=== PATIENT | male | born 1985 | race Caucasian/White ===

== ENCOUNTER 2018-04-22 11:11 | Inpatient (IN) | payer MEDICAID, OTHER | END 2018-04-30 18:22 | disposition home or self-care (01) | LOC: ER 11:11 → PCU 3S 04-25 17:01 → ED HOLD 11:55 → CICU 2S 13:33 | PROC: 5A1945Z Respiratory Ventilation, 24-96 Consecutive Hours (ICD-10-PCS; principal; ~2018-04-22) | PROC: 0BH17EZ Insertion of Endotracheal Airway into Trachea, Via Natural or Artificial Opening (ICD-10-PCS; ~2018-04-22) | DX: J96.00 Acute respiratory failure, unspecified whether with hypoxia or hypercapnia (principal); I46.9 Cardiac arrest, cause unspecified; J69.0 Pneumonitis due to inhalation of food and vomit; J81.0 Acute pulmonary edema; I47.2 Ventricular tachycardia; T40.1X1A Poisoning by heroin, accidental (unintentional), initial encounter ==

== ENCOUNTER 2021-07-25 11:09 | Emergency (ER) | payer MEDICAID ==
[~2021-07-25] VITALS: Ht 175.3 cm; Wt 92.8 kg
[~2021-07-25 11:09] MED LIST: CLON0.1T2 PO; UNABLE TO OBTAIN
[2021-07-25 11:12] VITALS: BP 139/98
[2021-07-25] MEDS ORDERED: SULF1TAB49 PO (11:41)
== END 2021-07-25 12:03 | disposition home or self-care (01) ==
LOC: ER 11:09
DX: L03.116 Cellulitis of left lower limb (principal); F14.90 Cocaine use, unspecified, uncomplicated; Z72.89 Other problems related to lifestyle; Z59.00 Homelessness unspecified; Z79.899 Other long term (current) drug therapy
CPT/HCPCS: 99284

== ENCOUNTER 2021-11-16 00:28 | Emergency (ER) | payer MEDICAID ==
[~2021-11-16] VITALS: Ht 175.3 cm; Wt 91.5 kg
--- NOTE | 2021-11-16 01:00 | NUR ---
TOOK ADVIL @0000 3 CM LAC TO LEFT FACE UPPER LIP AREA , THROUGH AND THROUGH, ECCHYMOSIS AROUND SITE EDGES APPROXIMATE WELL NON DISTRESSFUL
[2021-11-16] MEDS ORDERED: amox tr/potassium clavulanate 500mg/125mg TAB PO ONE (01:20)
[2021-11-16] MEDS ORDERED: ondansetron 4mg rapidly disintigrating tab PO ONE (01:20)
[2021-11-16] MEDS ORDERED: AMOX-115 PO (01:44)
[2021-11-16 02:03] VITALS: BP 122/86
== END 2021-11-16 02:04 | disposition home or self-care (01) ==
LOC: ER 00:28
DX: S01.511A Laceration without foreign body of lip, initial encounter (principal); F11.90 Opioid use, unspecified, uncomplicated; Z72.89 Other problems related to lifestyle; Z59.00 Homelessness unspecified; Z79.2 Long term (current) use of antibiotics; X58.XXXA Exposure to other specified factors, initial encounter; Y93.64 Activity, baseball; Y92.89 Other specified places as the place of occurrence of the external cause; Y99.8 Other external cause status
CPT/HCPCS: 12011; 99283

== ENCOUNTER 2021-11-23 12:30 | Emergency (ER) | payer MEDICAID ==
[~2021-11-23] VITALS: Ht 175.3 cm; Wt 90.9 kg
[~2021-11-23 12:30] MED LIST changes: +AMOX-115 PO; -CLON0.1T2 PO; -UNABLE TO OBTAIN
[2021-11-23 12:36] VITALS: BP 127/95
== END 2021-11-23 14:21 | disposition home or self-care (01) ==
LOC: ER 12:30
DX: S01.511D Laceration without foreign body of lip, subsequent encounter (principal); Z48.00 Encounter for change or removal of nonsurgical wound dressing; X58.XXXD Exposure to other specified factors, subsequent encounter
CPT/HCPCS: 99281